=== PATIENT | female | born 1960 | race Caucasian/White ===

== ENCOUNTER 2017-04-13 12:27 | Emergency (ER) | payer OTHER ==
[2017-04-13 12:36] VITALS: BP 141/95
--- NOTE | 2017-04-13 12:57 | ER Document Report ---
ED Extremity Problem, Lower - General Chief Complaint: Knee Pain Stated Complaint: FALL/KNEE PAIN Time Seen by Provider: 04/13/17 12:49 Mode of Arrival: Ambulatory Information source: Patient TRAVEL OUTSIDE OF THE [place] IN LAST 30 DAYS: No - HPI Patient complains to provider of: Injury, Pain Location: Knee Occurred: Yesterday Where: Home Context: Fell Recent injury: Yes Associated symptoms: Painful ambulation Exacerbated by: Movement Relieved by: Nothing Notes: Patient is a 56-year-old female who presents to the emergency room complaining of left knee pain that started after she fell yesterday, she fell onto the knee , since then has been having pain with weightbearing and twisting of the knee, denies any injury or trauma elsewhere, no history of previous trauma to this knee, pain is mainly in the medial joint line - Related Data Allergies/Adverse Reactions: codeine Allergy (Verified 04/13/17 12:35) bees Allergy (Uncoded 04/13/17 12:35) Past Medical History - General Information source: Patient - Social History Smoking Status: Never Smoker Family History: Reviewed & Not Pertinent Renal/ Medical History: Denies: Hx Peritoneal Dialysis Review of Systems - Review of Systems Constitutional: No symptoms reported EENT: No symptoms reported Cardiovascular: No symptoms reported Respiratory: No symptoms reported Gastrointestinal: No symptoms reported Genitourinary: No symptoms reported Female Genitourinary: No symptoms reported Musculoskeletal: See HPI Skin: No symptoms reported Hematologic/Lymphatic: No symptoms reported Neurological/Psychological: No symptoms reported -: Yes All other systems reviewed and negative Physical Exam - Vital signs Vitals: Temp Pulse Resp BP Pulse Ox 98.3 F 83 24 H 141/95 H 97 04/13/17 12:35 04/13/17 12:35 04/13/17 12:35 04/13/17 12:35 04/13/17 12:35 - Notes Notes: - General General appearance: Appears well, Alert In distress: None - HEENT Head: Normocephalic, Atraumatic Eyes: Normal Conjunctiva: Normal Extraocular movements intact: Yes Eyelashes: Normal Pupils: PERRL - Respiratory Respiratory status: No respiratory distress - Cardiovascular Rhythm: Regular - Abdominal Inspection: Normal - Back Back: Normal - Extremities General upper extremity: Normal inspection General lower extremity: Tenderness to palpate in the left knee medial joint line, pain with range of motion testing, distal sensation and motor is intact - Neurological Neuro grossly intact: Yes Orientation: AAOx4 Hallie Coma Scale Eye Opening: Spontaneous Hallie Coma Scale Verbal: Oriented Hallie Coma Scale Motor: Obeys Commands Hallie Coma Scale Total: 15 - Psychological Associated symptoms: Normal affect, Normal mood - Skin Skin Temperature: Warm Skin Moisture: Dry Skin Color: Normal Course - Re-evaluation Re-evalutation: 04/13/17 12:55 Patient with likely soft tissue injury to the left knee that it occurred after a fall she sustained recently, x-ray show no acute findings, she was placed IN an Ron wrap and and advised to follow-up with orthopedics within the next week, patient was offered pain medication which she declined, advised to use Tylenol or Motrin, ice and elevate, limit ambulation, return if symptoms worsen, patient acknowledges understanding and agreement with this plan - Vital Signs Vital signs: Temp Pulse Resp BP Pulse Ox 98.3 F 83 24 H 141/95 H 97 04/13/17 12:35 04/13/17 12:35 04/13/17 12:35 04/13/17 12:35 04/13/17 12:35 - Diagnostic Test Radiology reviewed: Image reviewed, Reports reviewed Procedures - Immobilization Left Knee Time completed: 12:56 Pre-Proc Neuro Vasc Exam: Normal Immobilizer type: Ron wrap Performed by: PCT Post-Proc Neuro Vasc Exam: Normal Alignment checked and good: Yes Discharge - Discharge Clinical Impression: Strain of left knee Qualifiers: Encounter type: initial encounter Qualified Code(s): S86.912A - Strain of unspecified muscle(s) and tendon(s) at lower leg level, left leg, initial encounter Condition: Stable Disposition: HOME, SELF-CARE Instructions: Ice & Elevation ([facility]), Suspected Internal Knee Injury ([facility]), Sprained Knee ([facility]) Additional Instructions: Follow up with your primary care provider and an orthopedic surgeon in one to 2 days. Return to the emergency room immediately if symptoms worsen or any additional concerns. Ice and elevate the affected extremity. Limit weightbearing. Referrals: DARRIAN AGUILAR MD [ACTIVE STAFF] - Follow up as needed
--- NOTE | 2017-04-13 13:25 | RADIOLOGY REPORT (SQ) ---
EXAM DESCRIPTION: KNEE LEFT 4 VIEW COMPLETED DATE/TIME: 04/13/2017 1:09 pm REASON FOR STUDY: INJURY COMPARISON: None. NUMBER OF VIEWS: Four views. TECHNIQUE: AP, lateral, and both oblique radiographic images acquired of the left knee. LIMITATIONS: None. FINDINGS: MINERALIZATION: Normal. BONES: No acute fracture or dislocation. No worrisome bone lesions. JOINT: No effusion. SOFT TISSUES: No soft tissue swelling. No radio-opaque foreign body. OTHER: No other significant finding. IMPRESSION: NEGATIVE STUDY OF THE LEFT KNEE. NO RADIOGRAPHIC EVIDENCE OF ACUTE INJURY. TECHNICAL DOCUMENTATION: JOB ID: [id number] [employer]- All Rights Reserved
== END 2017-04-13 13:30 | disposition home or self-care (01) ==
LOC: ER 12:27
DX: S86.912A Strain of unspecified muscle(s) and tendon(s) at lower leg level, left leg, initial encounter (principal); M25.562 Pain in left knee; W19.XXXA Unspecified fall, initial encounter
CPT/HCPCS: 99283